=== PATIENT | female | born 2000 | race Caucasian/White ===

== ENCOUNTER 2020-07-11 14:35 | Emergency (ER) | payer OTHER ==
[~2020-07-11 14:35] MED LIST: BUSPAR5 MG PO; CYMBALTA 30MG C30 MG PO; DETROL LA4 MG PO; FOLIC ACID1 MG PO; INDERAL20 MG PO; KEFLEX250 MG PO; LARIN FE 1-201 EACH PO; NORCO 7.5-3251 EACH PO; ONDANSETRON ODT4 MG PO; SEROQUEL 25MG T25 MG PO; TOPAMAX25 MG PO; ZANTAC150 MG PO; ZOFRAN8 MG PO; ZYRTEC10 M3 PO
[2020-07-11 15:29] LABS: BASOPHIL 0.2 % (0-2); EOSINOPHIL 4.3 % (0-5); HCT 39.9 % (37.0-47.0); HGB 12.7 g/dl (12.5-16.0); LYMPHOCYTE 32.7 % (15-48); MCH 28.3 pg (25.0-31.0); MCHC 31.8 g/dL (32.0-36.0); MCV 89.1 fL (78.0-100.0); MONOCYTE 9.7 % (0-12); MPV 8.8 fL (6.0-9.5); NEUTROPHIL 52.9 % (41-80); NRBC 0; PLT 383 K/uL (150-400); RBC 4.48 M/uL (4.20-5.40); RDW 12.6 % (11.5-14.0); WBC 8.8 K/uL (4.0-10.5)
[2020-07-11 15:47] LABS: CREATININE 0.73 mg/dL (0.51-0.95); POTASSIUM 5.1 mmol/L (3.5-5.1)
[2020-07-11] MEDS ORDERED: MEDROL 4MG DOSEP4 MG PO (16:10)
[2020-07-11] MEDS ORDERED: VENTOLIN HFA IN18 GM INH (16:10)
== END 2020-07-11 16:39 | disposition home or self-care (01) ==
LOC: FER 14:35
PROVIDERS: Nurse Practitioner Family
DX: B34.9 Viral infection, unspecified (principal); Z86.16 Personal history of COVID-19
CPT/HCPCS: 36415; 71045; 80048; 85025; 85379; 93005

== ENCOUNTER 2020-08-20 13:18 | Emergency (ER) | payer OTHER ==
[~2020-08-20 13:18] MED LIST changes: +MEDROL 4MG DOSEP4 MG PO; +VENTOLIN HFA IN18 GM INH
[2020-08-20] MEDS ORDERED: MEDROL 4MG DOSEP4 MG PO (16:53)
[2020-08-20] MEDS ORDERED: CYCLOBENZAPRINE10 MG PO (16:53)
== END 2020-08-20 17:07 | disposition home or self-care (01) ==
LOC: FER 13:18
DX: S30.1XXA Contusion of abdominal wall, initial encounter (principal); V49.40XA Driver injured in collision with unspecified motor vehicles in traffic accident, initial encounter; Y92.410 Unspecified street and highway as the place of occurrence of the external cause

== ENCOUNTER 2021-06-27 15:54 | Emergency (ER) | payer OTHER ==
[~2021-06-27 15:54] MED LIST changes: +CYCLOBENZAPRINE10 MG PO
[2021-06-27 17:18] LABS: BILIRUBIN 1+ mg/dL (NEGATIVE); BLOOD NEGATIVE Ery/uL (NEGATIVE); CLARITY CLEAR (CLEAR); COLOR YELLOW (YELLOW); GLUCOSE (U) NORMAL (NORMAL); LEUKOCYTES NEGATIVE Leu/uL (NEGATIVE); NITRITE NEGATIVE (NEGATIVE); PROTEIN TRACE (LOW) mg/dL (NEGATIVE); UROBILINOGEN 0.2 mg/dL (0.2-1.0); pH 6.5 (5.0-9.0)
[2021-06-27 17:35] LABS: BASOPHIL 0.4 % (0-2); EOSINOPHIL 2.7 % (0-5); HCT 47.7 % (37.0-47.0); HGB 15.5 g/dl (12.5-16.0); LYMPHOCYTE 21.5 % (15-48); MCHC 32.5 g/dL (32.0-36.0); MCV 83.1 fL (78.0-100.0); MONOCYTE 6.9 % (0-12); MPV 8.3 fL (6.0-9.5); NEUTROPHIL 68.2 % (41-80); NRBC 0; PLT 539 K/uL (150-400); RBC 5.74 M/uL (4.20-5.40); RDW 13.1 % (11.5-14.0); WBC 10.2 K/uL (4.0-10.5)
[2021-06-27 17:51] LABS: CREATININE 0.77 mg/dL (0.51-0.95); POTASSIUM 4.5 mmol/L (3.5-5.1)
[2021-06-27 18:30] LABS: CORONAVIRUS 2019 SARS-COV-2 NEGATIVE (NEGATIVE); INFLUENZA A NAA NEGATIVE (NEGATIVE)
[2021-06-27] MEDS ORDERED: NORCO 5-325 TA1 EACH PO (22:58)
[2021-06-27] MEDS ORDERED: BENTYL10 MG PO (22:58)
[2021-06-27] MEDS ORDERED: NAPROXEN500 MG PO (22:58)
== END 2021-06-27 23:14 | disposition home or self-care (01) ==
LOC: FER 15:54
PROVIDERS: Nurse Practitioner Family
DX: R10.30 Lower abdominal pain, unspecified (principal); R19.7 Diarrhea, unspecified; Z20.822 Contact with and (suspected) exposure to COVID-19
CPT/HCPCS: 36415; 80048; 81003; 85025; J1885; U0002